=== PATIENT | male | born 1995 | race Caucasian/White ===

== ENCOUNTER 2017-11-15 19:11 | Emergency (ER) | payer SELFPAY ==
[2017-11-15 21:39] VITALS: BP 140/81
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
== END 2017-11-15 22:06 | disposition home or self-care (01) ==
LOC: UCEAST 19:11
DX: S63.501A Unspecified sprain of right wrist, initial encounter (principal); S83.91XA Sprain of unspecified site of right knee, initial encounter; S16.1XXA Strain of muscle, fascia and tendon at neck level, initial encounter; V43.52XA Car driver injured in collision with other type car in traffic accident, initial encounter; Y93.89 Activity, other specified; Y92.410 Unspecified street and highway as the place of occurrence of the external cause
CPT/HCPCS: 99202; G0463